=== PATIENT | male | born 1995 | race Hispanic/Latino ===

== ENCOUNTER 2018-05-14 20:09 | Emergency (ER) | payer BC ==
[2018-05-14 20:19] VITALS: BP 121/74; PULSE 82; RESP 18; TEMP 98; O2SAT 100
--- NOTE | 2018-05-14 20:59 | ED PDOC ---
HPI: Head Injury Time Seen by Provider: 05/14/18 20:18 Chief Complaint (Nursing): Trauma Chief Complaint (Provider): Wound Evaluation, Head Injury History Per: Patient History/Exam Limitations: no limitations Injury Occurred (Timing): Hours Ago: (x2) Loss Of Consciousness: No Additional Complaint(s): Óscar Moran is a 22 year old male, with no significant past medical history, who presents to the emergency department for wound evaluation onset x2 hrs prior to arrival. Patient reports he was at wrestling practice when he struck his head against the other person's head. Patient states he passed the concussion test/protocol at school. Requesting wound evaluation for scalp laceration. He denies any LOC, nausea, vomit, vision changes, headache and dizziness. No further medical complaints. PMD: None provided. Past Medical History Reviewed: Historical Data, Nursing Documentation, Vital Signs Vital Signs: Last Vital Signs Temp 98 F 05/14/18 20:15 Pulse 82 05/14/18 20:15 Resp 18 05/14/18 20:15 BP 121/74 05/14/18 20:15 Pulse Ox 100 05/14/18 20:15 - Medical History PMH: No Chronic Diseases - Surgical History Surgical History: No Surg Hx - Family History Family History: States: Unknown Family Hx - Home Medications Home Medications: Ambulatory Orders Medication Instructions Recorded Acetaminophen [Acetaminophen 8 650 mg PO Q8 PRN #21 tablet.er 05/14/18 Hour] - Allergies Allergies/Adverse Reactions: Allergies Allergy/AdvReac Type Severity Reaction Status Date / Time No Known Allergies Allergy Verified 05/14/18 20:15 Review of Systems ROS Statement: Except As Marked, All Systems Reviewed And Found Negative Eyes: Negative for: Vision Change Gastrointestinal: Negative for: Nausea, Vomiting Skin: Positive for: Other (head wound) Neurological: Negative for: Headache, Dizziness Physical Exam - Reviewed Nursing Documentation Reviewed: Yes Vital Signs Reviewed: Yes - Physical Exam Comments: GENERAL APPEARANCE: Patient is awake, alert, oriented x 3, in no acute distress. Resting comfortably. SKIN: Warm, dry; (-) cyanosis; (-) rash. HEAD: (+) Linear, superficial, horizontal scalp laceration measuring 1.5cm to right parietal scalp (+) mild surrounding edema (-) ecchymosis (-) active bleeding (-) palpable bony deformity. Remainder of scalp nontender with no deformity. EYES: (-) conjunctival pallor, (-) scleral icterus. NECK: Supple, FROM (-) tenderness CHEST AND RESPIRATORY: (-) rales, (-) rhonchi, (-) wheezes; breath sounds equal bilaterally. Respirations even and nonlabored. HEART AND CARDIOVASCULAR: (-) irregularity EXTREMITIES: (-) deformity. NEURO AND PSYCH: Mental status as above. network coordinator: grossly intact. Pupils equal and reactive; EOMI and painless; (-) facial asymmetry;Gait: steady. Speech: clear. Cerebellar tests intact. - ECG O2 Sat by Pulse Oximetry: 100 (RA) Pulse Ox Interpretation: Normal Medical Decision Making Medical Decision Making: Time: 20:15 Initial Impression: scalp laceration Initial Plan: --Reevaluation --Laceration repair 2100 Laceration repair performed by Dieudonne BRODERICK. See procedure note. 2114 On re-evaluation, patient reports improvement of symptoms. On exam, patient remains AAOx3, in no acute distress. Lungs clear to auscultation, cardiac RRR, repeat neuro exam shows no focal findings. Vitals stable. Educated on wound care. Lab / Diagnostic results d/w the patient in great detail. Diagnosis of scalp laceration, head injury d/w the patient. Based on history, exam and diagnostic results, plan will be for outpatient follow up. Staple removal in 5 days. Patient instructed to follow-up with pmd / referral provided / the clinic in 1- 2 days without fail. Return to the emergency room at any time for any new or worsening symptoms. Patient states he fully agrees with and understands discharge instructions. States that he agrees with the plan and disposition. Verbalized and repeated discharge instructions and plan. I have given the patient opportunity to ask any additional questions. Scribe Attestation: Documented by Cliff Lucio, acting as a scribe for Cheryl Bro PA-C Provider Scribe Attestation: All medical record entries made by the Scribe were at my direction and personally dictated by me. I have reviewed the chart and agree that the record accurately reflects my personal performance of the history, physical exam, medical decision making, and the department course for this patient. I have also personally directed, reviewed, and agree with the discharge instructions and disposition. Disposition - Clinical Impression Clinical Impression: Scalp laceration, Head injury - Patient ED Disposition Is Patient to be Admitted: No Counseled Patient/Family Regarding: Studies Performed, Diagnosis, Need For Followup, Rx Given - Disposition Referrals: [facility] [Outside] Disposition: Routine/Home Disposition Time: 21:15 Condition: STABLE Additional Instructions: STAPLE REMOVAL IN 5 DAYS. The emergency medical care you received today was directed at your acute symptoms. If you were prescribed any medication, please fill it and take as directed. It may take several days for your symptoms to resolve. Return to the Emergency Department if your symptoms worsen, do not improve, or if you have any other problems. Please contact your doctor in 2 days for re-evaluation and follow up / or call one of the physicians/clinics you have been referred to that are listed on the Patient Visit Information form that is included in your discharge packet. Bring any paperwork you were given at discharge with you along with any medications you are taking to your follow up visit. Our treatment cannot replace ongoing medical care by a primary care provider (PCP) outside of the emergency department. Prescriptions: Acetaminophen [Acetaminophen 8 Hour] 650 mg PO Q8 PRN #21 tablet.er PRN Reason: Pain, Moderate (4-7) Instructions: Laceration Repair With [place] (DC), Minor Head Injury (DC) Forms: [employer] (Latvian) Print Language: KOREAN - POA Present On Arrival: Falls Or Trauma Procedure: Wound Repair - Time Performed Time Performed: 21:00 - Time Out Time Out: Side verified, Site verified, Patient ID confirmed - Procedure Procedure: Wound Repair: Scalp Laceration - Consent Obtained Consent obtained: Verbal - Performed by Performed by: Mid-level Provider (Dieudonne BRODERICK) - Indications Indication(s):: Laceration - Location Location:: Scalp Finger:: Right Shape:: Linear Dimensions Length cm: 1.5 Depth:: Epidermis - Debris Debris:: None - Irrigated Irrigated with ml of normal saline: 100 - Complexity Complexity:: Simple (one layer) (2 willie) - Complications Complications: None. - Patient tolerated procedure Patient Tolerated Procedure:: Well (Patient educated on wound care. Advised staple removal in 5 days.)
== END 2018-05-14 21:42 | disposition home or self-care (01) ==
LOC: H.ER 20:09
DX: S01.01XA Laceration without foreign body of scalp, initial encounter (principal); W22.8XXA Striking against or struck by other objects, initial encounter; Y93.72 Activity, wrestling